=== PATIENT | male | born 1970 | race African-American/Black ===

== ENCOUNTER 2017-12-10 10:18 | Day surgery (SDC) | payer BC ==
[2017-12-10] MEDS ORDERED: Sodium Chloride 0.9% 10 ML Syringe FLUSH PRN (10:45)
[2017-12-10] MEDS ORDERED: Sodium Chloride 0.9% 1,000 ML IV SCH (10:45)
[2017-12-10] MEDS ORDERED: Lactated Ringers 1,000 ML IV SCH (10:45)
[2017-12-10] MEDS ORDERED: Midazolam 1 MG/ML 2 ML SDV ONE ×2 (11:33→11:41)
[2017-12-10] MEDS ORDERED: fentaNYL 100 MCG/2 ML SDV ONE ×2 (11:33→11:41)
[2017-12-10] MEDS ORDERED: Ketamine 500 mg/10 ML MDV ONE ×2 (11:33→11:41)
[2017-12-10] MEDS ORDERED: Propofol 200 MG/20 ML SDV ONE ×2 (11:34→11:41)
--- NOTE | 2017-12-10 11:37 | PCM.HPR ---
H & P Addendum review - H & P Addendum Review Date of Original H & P: 11/11/17 Date Reviewed: 12/10/17 Time Reviewed: 11:36 Patient was Examined: No Changes
[2017-12-10] MEDS ORDERED: Lidocaine 2% 5 ML SDV ONE (11:41)
--- NOTE | 2017-12-10 12:19 | PCM.OPNOTE ---
- General Post-Op/Procedure Note Date of Surgery/Procedure: 12/10/17 Operative Procedure(s): EGD with Bx. Colonoscopy Findings: Both Normal Pre Op Diagnosis: GERD. Hematochezia Post-Op Diagnosis: Same Anesthesia Technique: MAC Primary Surgeon: Omar Rahman Anesthesia Provider: Lisy Cristina Complications: None Condition: Good
[2017-12-10 17:53] VITALS: BP 160/90
--- NOTE | 2017-12-11 08:15 | OR ---
Date of Procedure: 12/10/2017 PREOPERATIVE DIAGNOSES: 1. Gastroesophageal reflux disease. 2. Hematochezia. POSTOPERATIVE DIAGNOSES: 1. Gastroesophageal reflux disease. 2. Inflamed internal hemorrhoids. PROCEDURE: 1. EGD with biopsy. 2. Colonoscopy. ANESTHESIA: IV sedation. PROCEDURE: The patient was brought to the procedure room where he was placed on his left side and IV sedation administered. Oral bite block was placed and the upper endoscope advanced into the esophagus under direct vision without difficulty. Vocal cords were viewed and were normal. Scope was advanced to the third portion of the duodenum. Duodenum and pylorus were normal. Antrum and body of the stomach were normal. Retroflexion reveals an abnormal appearing fundus indicative of his previous anti-reflux surgery. Squamocolumnar junction appears normal. Lower esophageal sphincter is loose. There are no ulcers, erosions, or inflammation. I did take two random biopsies from the distal esophagus because of the symptoms. Photographs were taken. Air was removed and the scope withdrawn through the remaining esophagus which appears normal. The patient tolerated the procedure well. Colonoscopy was performed after digital rectal exam was done which was normal. Colonoscope was inserted and there was some old dark blood present in the rectum. This was irrigated and appears to be coming from the internal hemorrhoidal region. There is no active bleeding. There is inflammation circumferentially, but no enlargement of the hemorrhoidal tissue. The scope was then advanced to the cecum without difficulty. Cecal position was confirmed by identifying the appendiceal lumen and the ileocecal valve. Prep was good and surfaces were well visualized. Upon withdrawing the scope, the ascending, transverse, and descending colon were normal in appearance. Sigmoid colon and rectum were normal. Retroflexion again confirms inflammation around the internal hemorrhoidal region. Air was removed. The scope withdrawn. The patient tolerated the procedure well and returned to recovery in stable condition. I will have the patient followup with Karla Rosa for review of biopsies. If inflammation is present, adjustment in antacid medication should be tried. AALIYAH ARELLANO MD /[id number]
== END 2017-12-10 13:53 | disposition home or self-care (01) ==
LOC: LL.SDS 10:18
PROVIDERS: ATTEND Surgery
DX: K21.0 Gastro-esophageal reflux disease with esophagitis (principal); K64.8 Other hemorrhoids; I10 Essential (primary) hypertension; E11.42 Type 2 diabetes mellitus with diabetic polyneuropathy; E11.65 Type 2 diabetes mellitus with hyperglycemia; E66.3 Overweight; Z68.28 Body mass index [BMI] 28.0-28.9, adult; F17.210 Nicotine dependence, cigarettes, uncomplicated; D64.9 Anemia, unspecified; I25.10 Atherosclerotic heart disease of native coronary artery without angina pectoris; E78.1 Pure hyperglyceridemia; F41.9 Anxiety disorder, unspecified; Z79.84 Long term (current) use of oral hypoglycemic drugs; Z79.899 Other long term (current) drug therapy
CPT/HCPCS: 43239; 45378; 82962; J2250; J2704; J3010; J7030